=== PATIENT | male | born 1945 | race Caucasian/White ===

== ENCOUNTER 2016-07-03 11:54 | Inpatient (IN) | payer OTHER ==
--- NOTE | 2016-07-03 14:03 | EDPHY ---
H & P Stated Complaint: 2 weeks n/v/d Time Seen by Provider: 07/03/16 13:38 HPI/ROS: CHIEF COMPLAINT: diarrhea x2 weeks HISTORY OF PRESENT ILLNESS: 71-year-old male presents emergency department sent by Dr. Scott Spring for treatment for his diarrhea that is presumed to be Clostridium difficile. Patient had a toe infection last year that was treated with IV antibiotics, last treatment was in the fall. Patient reports he had diarrhea that started 2 weeks ago, every 15-20 minutes, liquid and yellow in nature with lower abdominal cramping. Patient reports yesterday he started with nausea and had a few episodes of emesis. Patient denies fevers. He reports feeling very fatigued. No chest pain or shortness of breath. REVIEW OF SYSTEMS: A comprehensive 10 point review of systems is otherwise negative aside from elements mentioned in the history of present illness. Source: Patient Exam Limitations: No limitations - Personal History Current Tetanus/Diphtheria Vaccine: Yes - Medical/Surgical History Hx Asthma: No Hx Chronic Respiratory Disease: No Hx Diabetes: No Hx Cardiac Disease: No Hx Renal Disease: No Hx Cirrhosis: No Hx Alcoholism: No Hx HIV/AIDS: No Hx Splenectomy or Spleen Trauma: No Other PMH: denies - Social History Smoking Status: Never smoked - Physical Exam Exam: Physical Exam Gen: Alert and Oriented, NAD HEENT: PERRL, moist mucous membranes NECK: no meningismus CV: regular rate and regular rhythm PULM: CTAB, no wheezes ABDOMEN: soft, mild diffuse tenderness to palpation, BS present BACK: No CVA tenderness NEURO: Neurologically grossly intact EXTREMITIES: normal appearing SKIN: no rash or break in skin on exposed skin PSYCH: answers questions appropriately. Constitutional: Initial Vital Signs Temperature (C) 36.7 C 07/03/16 12:00 Heart Rate 92 07/03/16 12:00 Respiratory Rate 18 07/03/16 12:00 Blood Pressure 132/93 H 07/03/16 12:00 O2 Sat (%) 94 07/03/16 12:00 O2 Delivery Mode Room Air Allergies/Adverse Reactions: Penicillins Allergy (Severe, Verified 07/03/16 16:14) Rash Home Medications: Medication Instructions Recorded NK [No Known Home Meds] 07/03/16 Medical Decision Making ED Course/Re-evaluation: 71-year-old male sent by Dr. Spring for presumed C difficile for admission for hydration and p.o. vancomycin. Patient is nontoxic appearing with normal vital signs, he is afebrile. IV established, CBC, chemistry panel, stool culture with C diff ordered. Patient is given 2 L normal saline. CBC shows an elevated white blood cell count 88071 with a left shift, he is hemoconcentrated with a H&H of 18.6 and 52.7. Chemistry panel shows normal electrolytes, normal renal function, total bilirubin 2.7. C difficile is positive. Patient was given 125 mg p. o. vancomycin and admitted to Dr. Reginald Crouch for IV hydration. Patient is comfortable with this plan. - Data Points Laboratory Results: Laboratory Results 07/03/16 14:40 07/03/16 14:40 07/03/16 14:40 WBC 18.16 H 10^3/uL (3.80-9.50) RBC 6.17 10^6/uL (4.40-6.38) Hgb 18.6 H g/dL (13.7-17.5) Hct 52.7 H % (40.0-51.0) MCV 85.4 fL (81.5-99.8) MCH 30.1 pg (27.9-34.1) MCHC 35.3 g/dL (32.4-36.7) RDW 13.3 % (11.5-15.2) Plt Count 238 10^3/uL (150-400) MPV 12.2 H fL (8.7-11.7) Neut % (Auto) 82.4 H % (39.3-74.2) Lymph % (Auto) 7.0 L % (15.0-45.0) [place] % (Auto) 9.9 % (4.5-13.0) Eos % (Auto) 0.1 L % (0.6-7.6) Baso % (Auto) 0.3 % (0.3-1.7) Nucleat RBC Rel Count 0.0 % (0.0-0.2) Absolute Neuts (auto) 14.98 H 10^3/uL (1.70-6.50) Absolute Lymphs (auto) 1.27 10^3/uL (1.00-3.00) Absolute Monos (auto) 1.79 H 10^3/uL (0.30-0.80) Absolute Eos (auto) 0.01 L 10^3/uL (0.03-0.40) Absolute Basos (auto) 0.06 10^3/uL (0.02-0.10) Absolute Nucleated RBC 0.00 10^3/uL (0-0.01) Immature Gran % 0.3 % (0.0-1.1) Immature Gran # 0.05 10^3/uL (0.00-0.10) Sodium 144 mEq/L (134-144) Potassium 4.0 mEq/L (3.5-5.2) Chloride 105 mEq/L (97-110) Carbon Dioxide 23 mEq/l (22-31) Anion Gap 16 mEq/L (8-16) BUN 17 mg/dL (7-23) Creatinine 1.1 mg/dL (0.7-1.3) Estimated GFR > 60 Glucose 113 H mg/dL (70-100) Calcium 9.6 mg/dL (8.5-10.4) Total Bilirubin 2.7 H mg/dL (0.1-1.4) Conjugated Bilirubin 0.4 mg/dL (0.0-0.5) Unconjugated Bilirubin 2.3 H mg/dL (0.0-1.1) AST 26 IU/L (17-59) ALT 38 IU/L (21-72) Alkaline Phosphatase 95 IU/L (38-126) Total Protein 7.0 g/dL (6.3-8.2) Albumin 4.2 g/dL (3.5-5.0) Lipase 50.0 IU/L (23-300) Microbiology Results: MICROBIOLOGY 07/03/16 14:10 Stool Gastrointestinal Tract Panel (PCR) - Final Clostridium Difficile Detected Medications Given: Discontinued Medications Sodium Chloride (Ns) 1,000 mls @ 0 mls/hr IV ONCE ONE PRN Reason: Wide Open Stop: 07/03/16 14:34 Last Admin: 07/03/16 14:45 Dose: 1,000 mls Departure - Departure Disposition: [facility] Inpatient Acute Clinical Impression: C. difficile colitis Condition: Fair
[2016-07-03] MEDS ORDERED: NS 1,000 ML IV ONE ×2 (14:33→17:18)
[2016-07-03 14:59] LABS: % IMMATURE GRANULYOCYTES 0.3 % (0.0-1.1); ABSOLUTE IMMATURE GRANULOCYTES 0.05 10^3/uL (0.00-0.10); ADD DIFF? NO; ADD MORPH? NO; ADD SCAN? NO; ATYPICAL LYMPHOCYTE FLAG 0 (0-99); FRAGMENT RBC FLAG 0 (0-99); HEMATOCRIT 52.7 % (40.0-51.0); HEMOGLOBIN 18.6 g/dL (13.7-17.5); LEFT SHIFT FLG 20 (0-99); LIPEMIA HEMOLYSIS FLAG 90 (0-99); MEAN CELL HEMOGLOBIN 30.1 pg (27.9-34.1); MEAN CELL HEMOGLOBIN CONCENTR. 35.3 g/dL (32.4-36.7); MEAN CELL VOLUME 85.4 fL (81.5-99.8); MEAN PLATELET VOLUME 12.2 fL (8.7-11.7); PLATELET CLUMPS FLAG 0 (0-99); PLATELET COUNT 238 10^3/uL (150-400); RED BLOOD CELL COUNT 6.17 10^6/uL (4.40-6.38); RED CELL DISTRIBUTION WIDTH 13.3 % (11.5-15.2)
[2016-07-03 15:12] LABS: ALANINE AMINOTRANSFERASE 38 IU/L (21-72); ALBUMIN 4.2 g/dL (3.5-5.0); ALKALINE PHOSPHATASE 95 IU/L (38-126); ANION GAP 16 mEq/L (8-16); ASPARTATE AMINOTRANSFERASE 26 IU/L (17-59); BILIRUBIN,TOTAL 2.7 mg/dL (0.1-1.4); BILIRUBIN-CONJUGATED 0.4 mg/dL (0.0-0.5); BILIRUBIN-UNCONJUGATED 2.3 mg/dL (0.0-1.1); CALCIUM 9.6 mg/dL (8.5-10.4); CARBON DIOXIDE 23 mEq/l (22-31); CHLORIDE 105 mEq/L (97-110); CREATININE 1.1 mg/dL (0.7-1.3); GLOMERULAR FILTRATION RATE > 60; GLUCOSE 113 mg/dL (70-100); SODIUM 144 mEq/L (134-144)
[2016-07-03] MEDS: VANCOMYCIN 125 MG/2.5 ML UDL PO SCH ×2 (15:12→20:47)
[2016-07-03] MEDS ORDERED: ZOLPIDEM TARTRATE 5 MG TAB PO PRN (17:18)
[2016-07-03] MEDS ORDERED: ONDANSETRON 4 MG/2 ML VIAL IVP PRN (17:18)
[2016-07-03] MEDS ORDERED: ACETAMINOPHEN 325 MG TAB PO PRN (17:18)
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
--- NOTE | 2016-07-03 17:34 | PCMIDPN ---
Assessment/Plan: Assessment: Diarrhea-likely C diff colitis. Prior long-term antibiotic use at the end of 2015. Directed patient to the emergency room and discussed with the ER physicians about admission, resuscitation and oral vancomycin therapy. Full outpatient note from today's visit in the paper chart. Plan: 1. Oral vancomycin. 2. Intravenous resuscitation. 3. Follow clinical course. 07/03/16 17:31 Subjective: Patient was seen in the office this morning. Full note included in the paper chart. Objective: P.o. vancomycin day # 0 Vital Signs Temp Pulse Resp BP Pulse Ox 36.7 C 91 18 143/86 H 99 07/03/16 16:39 07/03/16 16:39 07/03/16 16:39 07/03/16 16:39 07/03/16 16:39 07/02/16 07/03/16 07/04/16 05:59 05:59 05:59 Intake Total 1000 Balance 1000 ICD10 Worksheet Patient Problems: Problems Problem Status Diagnosed C. difficile colitis Acute - ICD10 Problem Qualifiers (1) C. difficile colitis
[2016-07-03] MEDS: NS W/ 20 KCl/L 1,000 ML IV SCH (18:09)
[2016-07-04] MEDS: NS W/ 20 KCl/L 1,000 ML IV SCH ×2 (04:29→12:18)
[2016-07-04] MEDS: VANCOMYCIN 125 MG/2.5 ML UDL PO SCH ×4 (05:38→22:31)
[2016-07-04 06:08] LABS: ANION GAP 8 mEq/L (8-16); CALCIUM 8.4 mg/dL (8.5-10.4); CARBON DIOXIDE 21 mEq/l (22-31); CHLORIDE 112 mEq/L (97-110); GLOMERULAR FILTRATION RATE > 60; GLUCOSE 73 mg/dL (70-100); MAGNESIUM 1.9 mg/dL (1.6-2.3); POTASSIUM 4.2 mEq/L (3.5-5.2); SODIUM 141 mEq/L (134-144)
[2016-07-04 06:13] LABS: % IMMATURE GRANULYOCYTES 0.3 % (0.0-1.1); ABSOLUTE IMMATURE GRANULOCYTES 0.04 10^3/uL (0.00-0.10); ADD DIFF? NO; ADD MORPH? NO; ADD SCAN? NO; ATYPICAL LYMPHOCYTE FLAG 0 (0-99); FRAGMENT RBC FLAG 0 (0-99); HEMATOCRIT 43.8 % (40.0-51.0); HEMOGLOBIN 14.9 g/dL (13.7-17.5); LEFT SHIFT FLG 20 (0-99); LIPEMIA HEMOLYSIS FLAG 90 (0-99); MEAN CELL HEMOGLOBIN 28.8 pg (27.9-34.1); MEAN CELL VOLUME 84.6 fL (81.5-99.8); MEAN PLATELET VOLUME 12.6 fL (8.7-11.7); PLATELET CLUMPS FLAG 0 (0-99); PLATELET COUNT 196 10^3/uL (150-400); RED BLOOD CELL COUNT 5.18 10^6/uL (4.40-6.38); RED CELL DISTRIBUTION WIDTH 13.2 % (11.5-15.2)
[2016-07-04] MEDS: ENOXAPARIN 40 MG/0.4 ML SYR SC SCH (08:43)
--- NOTE | 2016-07-04 10:02 | HOSPPROG ---
Hospitalist Progress Note Assessment/Plan: * C diff colitis * continue oral vancomycin * does have continued diarrhea * will monitor other day but anticipate he could probably go home tomorrow * dehydration * resolving * recent antibiotic course for osteomyelitis Subjective: feeling a lot better overall. With still having some diarrhea Objective: Vital Signs Temp Pulse Resp BP Pulse Ox 36.9 C 67 18 116/71 94 07/04/16 08:00 07/04/16 08:00 07/04/16 08:00 07/04/16 08:00 07/04/16 08:00 Laboratory Results 07/04/16 04:25 07/04/16 04:25 07/03/16 07/04/16 07/05/16 05:59 05:59 05:59 Intake Total 2250 Balance 2250 - Physical Exam Constitutional: no apparent distress, appears nourished, not in pain Eyes: anicteric sclera, EOMI Ears, Nose, Mouth, Throat: moist mucous membranes Respiratory: no respiratory distress Gastrointestinal: normoactive bowel sounds, soft, non-tender abdomen, no palpable masses Neurologic: AAOx3 Psychiatric: interacting appropriately, not anxious, not encephalopathic, thought process linear ICD10 Worksheet Patient Problems: Problems Problem Status Diagnosed C. difficile colitis Acute
[2016-07-04] MEDS ORDERED: diphenhydrAMINE 25 MG CAP PO PRN (22:20)
[2016-07-05 08:07] VITALS: BP 115/69; PULSE 69; RESP 18; TEMP 97.4; O2SAT 92
[2016-07-05] MEDS: ENOXAPARIN 40 MG/0.4 ML SYR SC SCH (08:30)
--- NOTE | 2016-07-05 10:11 | GDS ---
[f rep st] DISCHARGE SUMMARY DISCHARGE DIAGNOSES: 1. Clostridium difficile colitis. 2. Previous history of osteomyelitis, status post treatment. HISTORY: This is a 71-year-old male with a history of osteomyelitis, status post a long course of IV antibiotics, who presented with diarrhea. HOSPITAL COURSE: The patient was diagnosed with C difficile colitis. He was given oral vancomycin. On day 2, he developed a papular type rash on the back. He was switched over to Flagyl, and the chester h improved. I am not sure if this is an allergy to the oral vancomycin, but this was reviewed with I nfectious Disease, who recommended to switch him to Flagyl. He will be discharged on Flagyl and can follow up with Infectious Disease this week. /[id number]/MODL
== END 2016-07-05 10:36 | disposition home or self-care (01) | DRG 373 ==
LOC: F3E 16:25
PROVIDERS: ADMIT Internal Medicine; ATTEND Internal Medicine
DX: A04.7 Enterocolitis due to Clostridium difficile (principal); E86.0 Dehydration
CPT/HCPCS: J1650

== ENCOUNTER 2017-08-31 16:41 | Emergency (ER) | payer OTHER ==
--- NOTE | 2017-08-31 17:49 | EDPHY ---
H & P Stated Complaint: HAD TAKEN CEFUROXAMINE LAST WEEK/NOW WITH DIARRHEA WITH HX CDIFF IN PAST Time Seen by Provider: 08/31/17 17:49 HPI/ROS: HPI: This is a 72-year-old male who presents with Chief Complaint: HAD TAKEN CEFUROXIME LAST WEEK/NOW WITH DIARRHEA WITH HX CDIFF IN PAST Location: GI Quality: Diarrhea Duration: 24 hr Signs and Symptoms: no fever, + nausea, + dry heaves this morning, no vomiting, no hematemesis, no blood in stool, no abdominal bloating, + diarrhea, no back pain, no urinary symptoms, no testicular/groin pain, no indigestion, no chest pain, no shortness of breath, no abdominal pain Timing: Acute, sudden onset Severity: Moderate Context: Patient has a history of C diff greater than 5 years ago presents with complaints of GI upset accompanied by sudden onset of nausea and dry heaves this morning followed by 5-10 episodes of loose stool. Denies any hematemesis/blood in his stool. Patient reports that approximately 1 week ago he took 3 days of cefuroxime for an upper respiratory infection. He denies any upper respiratory symptoms at this time. Upon taking the 1st dose he noted some nausea and GI upset. Symptoms continue to worse for the next 2 days so then he stopped. Patient has a at home who has severe dementia and he wants limited workup in the emergency room. He does not have a primary care provider. He denies any fever/abdominal pain. He reports that he is eating and drinking normally. Patient is requesting laboratory workup stool sample and 1 L IV fluids. Patient is unsure of what medication he was treated with for initial C diff colitis. Modifying Factors: None Comment: ROS: see HPI Constitutional: No fever, no chills, no weight loss Eyes: No blurred vision Respiratory: No shortness of breath, no cough Cardiovascular: No chest pain, no palpitations Gastrointestinal: + nausea, + vomiting, + diarrhea, no hematemesis, no blood in stool Genitourinary: No dysuria, no blood in urine Extremities: No myalgias, no edema Neurologic: No weakness, no numbness Skin: No rashes, no petechiae Hematologic: No bruising, no bleeding MEDICAL/SURGICAL/SOCIAL HISTORY: Medical history: History of C diff Surgical history: Denies Social history: . CONSTITUTIONAL: Well-developed, well-nourished adult white male who appears younger than stated age, awake and alert, no obvious distress HEENT: Atraumatic and normocephalic, PERRL, EOMI. Tympanic membranes clear. Oropharynx clear, no exudate and moist pink mucosa. Airway patent. No lymphadenopathy. No meningismus. Cardiovascular: Normal S1/S2, regular rate, regular rhythm, without murmur rub or gallop. PULMONARY/CHEST: Symmetrical and nontender. Clear to auscultation bilaterally. Good air movement. No accessory muscle usage. ABDOMEN: Soft, nondistended, nontender, no rebound, no guarding, no peritoneal signs, no masses or organomegaly. No CVAT. Hyperactive bowel sounds heard x4 quadrants. EXTREMITIES: 2/2 pulses, strength 5/5, no deformities, no clubbing, no cyanosis or edema. NEUROLOGICAL: no focal neuro deficits. GCS 15. SKIN: Warm and dry, no erythema. no rash. Good capillary refill. Source: Patient Exam Limitations: No limitations - Personal History Current Tetanus/Diphtheria Vaccine: Yes - Medical/Surgical History Hx Asthma: No Hx Chronic Respiratory Disease: No Hx Diabetes: No Hx Cardiac Disease: No Hx Renal Disease: No Hx Cirrhosis: No Hx Alcoholism: No Hx HIV/AIDS: No Hx Splenectomy or Spleen Trauma: No Other PMH: C DIFF - Social History Smoking Status: Never smoked Constitutional: Initial Vital Signs Temperature (C) 37 C 08/31/17 16:57 Heart Rate 75 08/31/17 16:57 Respiratory Rate 19 08/31/17 16:57 Blood Pressure 108/79 08/31/17 16:57 O2 Sat (%) 95 08/31/17 16:57 O2 Delivery Mode Room Air Allergies/Adverse Reactions: Penicillins Allergy (Severe, Verified 08/31/17 16:56) Rash Home Medications: Medication Instructions Recorded Ondansetron Odt [Zofran Odt 4 mg 4 mg PO Q4 PRN #12 tab 08/31/17 (*)] Vancomycin [Vancomycin (*)] 125 mg PO Q6 10 Days cap 08/31/17 Medical Decision Making ED Course/Re-evaluation: Labs, IV fluids, stool sample ordered Patient has politely declined any CT abdomen and pelvis scan imaging. Abdomen is soft and nontender. Doubt surgical abdomen. Patient has no urinary symptoms and does not believe urinalysis was is needed at this time. Given 1 L normal saline per request. Tolerating p.o. Without difficulty. 190: Labs reviewed and showed WBC of 18 K, mildly elevated total bili and unconjugated bilirubin consistent with his vomiting and dry heaves this morning. No signs of sepsis/ELISA/electrolyte imbalance/anemia Called by lab and C diff positive. Patient is insistent on being discharged and treated at home. Will treat this as 1st occurrence as extended length of time since last episode and unsure of what antibiotics treated with 1st. Given vancomycin and prescription for 125 mg 4 times a day times 10 days. Tolerating p.o. Prior to discharge. This patient was seen under the supervision of my secondary supervising physician. I evaluated care for this patient independently. Differential Diagnosis: Abdominal pain including but not limited to appendicitis, cholecystitis, gastritis, gastroenteritis, medication side effect, C diff colitis and urinary tract infection. - Data Points Laboratory Results: Laboratory Results 08/31/17 18:30 08/31/17 18:30 08/31/17 08/31/17 08/31/17 18:30 18:30 18:30 WBC 18.43 10^3/uL H 10^3/uL (3.80-9.50) RBC 5.36 10^6/uL 10^6/uL (4.40-6.38) Hgb 15.9 g/dL g/dL (13.7-17.5) Hct 45.8 % % (40.0-51.0) MCV 85.4 fL fL (81.5-99.8) MCH 29.7 pg pg (27.9-34.1) MCHC 34.7 g/dL g/dL (32.4-36.7) RDW 13.0 % % (11.5-15.2) Plt Count 186 10^3/uL 10^3/uL (150-400) MPV 11.8 fL H fL (8.7-11.7) Neut % (Auto) 87.4 % H % (39.3-74.2) Lymph % (Auto) 5.5 % L % (15.0-45.0) [place] % (Auto) 6.3 % % (4.5-13.0) Eos % (Auto) 0.0 % L % (0.6-7.6) Baso % (Auto) 0.3 % % (0.3-1.7) Nucleat RBC Rel Count 0.0 % % (0.0-0.2) Absolute Neuts (auto) 16.09 10^3/uL H 10^3/uL (1.70-6.50) Absolute Lymphs (auto) 1.02 10^3/uL 10^3/uL (1.00-3.00) Absolute Monos (auto) 1.16 10^3/uL H 10^3/uL (0.30-0.80) Absolute Eos (auto) 0.00 10^3/uL L 10^3/uL (0.03-0.40) Absolute Basos (auto) 0.06 10^3/uL 10^3/uL (0.02-0.10) Absolute Nucleated RBC 0.00 10^3/uL 10^3/uL (0-0.01) Immature Gran % 0.5 % % (0.0-1.1) Immature Gran # 0.10 10^3/uL 10^3/uL (0.00-0.10) VBG Lactic Acid 1.6 mmol/L mmol/L (0.7-2.1) Sodium 142 mEq/L mEq/L (135-145) Potassium 3.9 mEq/L mEq/L (3.5-5.2) Chloride 104 mEq/L mEq/L (97-110) Carbon Dioxide 24 mEq/l mEq/l (22-31) Anion Gap 14 mEq/L mEq/L (8-16) BUN 20 mg/dL mg/dL (7-23) Creatinine 1.2 mg/dL mg/dL (0.7-1.3) Estimated GFR 59 Glucose 99 mg/dL mg/dL (70-100) Calcium 9.0 mg/dL mg/dL (8.5-10.4) Total Bilirubin 1.8 mg/dL H mg/dL (0.1-1.4) Conjugated Bilirubin 0.4 mg/dL mg/dL (0.0-0.5) Unconjugated Bilirubin 1.4 mg/dL H mg/dL (0.0-1.1) AST 37 IU/L IU/L (17-59) ALT 63 IU/L IU/L (21-72) Alkaline Phosphatase 97 IU/L IU/L (38-126) Total Protein 6.6 g/dL g/dL (6.3-8.2) Albumin 3.8 g/dL g/dL (3.5-5.0) Lipase 124 IU/L IU/L (23-300) Medications Given: Discontinued Medications Sodium Chloride (Ns) 1,000 mls @ 0 mls/hr IV EDNOW ONE; Wide Open PRN Reason: Protocol Stop: 08/31/17 18:15 Last Admin: 08/31/17 18:29 Dose: 1,000 mls Departure - Departure Disposition: Home, Routine, Self-Care Clinical Impression: Clostridium difficile infection Condition: Good Instructions: Clostridium Difficile Infection (ED), Contact Precautions (ED) Additional Instructions: Consume a minimum of 8-10 glasses of water or electrolyte fluid replacement drinks that include Gatorade, Powerade, Pedialyte. Eat a bland diet for the next 48 hours and then slowly advance as tolerated. Wash hands frequently and follow contact precautions to prevent contamination to others. Take all of the Vancomycin 4 times a day times 10 days. Do not miss or skip a dose. Return to the Emergency Room if symptoms do not resolve in the next 48-72 hours , you spike a fever > 102 F, or experience intractable abdominal pain/nausea/ vomiting. Follow-up with primary care provider in the next 2-3 days. Referrals: [facility],. [Clinic] - 2-3 days without fail Prescriptions: Ondansetron Odt [Zofran Odt 4 mg (*)] 4 mg PO Q4 PRN #12 tab PRN Reason: Nausea/Vomiting, Use 1st Vancomycin [Vancomycin (*)] 125 mg PO Q6 10 Days cap
[2017-08-31] MEDS ORDERED: NS 1,000 ML IV ONE (18:14)
[2017-08-31 18:47] LABS: PLATELET COUNT 186 10^3/uL (150-400)
[2017-08-31] MEDS ORDERED: VANCOMYCIN 125 MG/2.5 ML UDL PO ONE (19:16)
[2017-08-31] MEDS ORDERED: VANCOMYCIN 125 MG/2.5 ML UDL ONE (19:37)
[2017-08-31 19:45] VITALS: BP 133/86
== END 2017-08-31 19:45 | disposition home or self-care (01) ==
DX: A04.72 Enterocolitis due to Clostridium difficile, not specified as recurrent (principal); E86.9 Volume depletion, unspecified